=== PATIENT | female | born 1965 | race Caucasian/White ===

== ENCOUNTER 2021-03-11 01:05 | Emergency (ER) | payer OTHER ==
[~2021-03-11] VITALS: Ht 170.2 cm; Wt 66.3 kg
[2021-03-11 01:25] VITALS: BP 155/87
--- NOTE | 2021-03-11 01:48 | ED.ADGEN ---
General Adult EDM: Chief Complaint: MECHANICAL FALL HPI: HPI: Patient is a 56 year old female coming in for right knee pain and swelling after a fall at work. Patient was carrying some buckets when she fell forward striking her right knee onto the concrete. Her left knee fell into a box of syringes and is not hurting. If it ambulate for about 5 minutes until the swelling got too bad at the pain. No other injuries denies any anticoagulant use. States she otherwise been well Review of Systems: Review of Systems: All other systems within normal limits except for as noted in the HPI Allergies: Allergies: Allergies Coded Allergies Type Severity Reaction Last Updated Verified No Known Drug Allergies 03/11/21 No Physical Exam: PE: Constitutional: Well developed, well nourished, no acute distress, non-toxic appearance. [] HENT: Normocephalic, atraumatic, bilateral external ears normal, nose normal. [] Eyes: PERRLA, conjunctiva normal, no discharge. [] Neck: No rigidity, supple, no stridor. [] Cardiovascular: Regular rate and rhythm, brisk cap refill [] Lungs & Thorax: Non labored symmetric respirations, no tachypnea or respiratory distress [] Abdomen: Soft, nondistended. Skin: Warm, dry, no erythema, no rash. [] Back: Unremarkable Extremities: No deformities, range of motion grossly intact, no lower extremity edema. Right knee effusion with patellar tenderness [] Neurologic: Alert and oriented X 3, no focal deficits noted. [] Psychologic: Affect normal, judgement normal, mood normal. [] Current Patient Data: Vital Signs: Vital Signs Date Time Temp Pulse Resp B/P (MAP) Pulse Ox O2 Delivery O2 Flow Rate FiO2 03/11/21 01:25 104 18 155/87 (109) 99 Room Air EKG: EKG: [] Heart Score: C/O Chest Pain: No Risk Factors: Risk Factors: DM, Current or recent (<one month) smoker, HTN, HLP, family history of CAD, obesity. Risk Scores: Score 0 - 3: 2.5% MACE over next 6 weeks - Discharge Home Score 4 - 6: 20.3% MACE over next 6 weeks - Admit for Clinical Observation Score 7 - 10: 72.7% MACE over next 6 weeks - Early Invasive Strategies Radiology/Procedures: Radiology/Procedures: [facility] [address] [place] [address] IMAGING REPORT Signed PATIENT: JODY RICE ACCOUNT: [id number] : 1965 LOCATION: ER AGE: 56 SEX: F EXAM STATUS: REG ER ORD. PHYSICIAN: VARGAS CARVAJAL MD REASON: fall, swelling PROCEDURE: KNEE RIGHT 4V EXAM: AP, oblique, lateral and tangential patellar views of the right knee DATE: 03/11/2021 1:50 AM INDICATION: Reason: fall, swelling / Spl. Instructions: / History: . COMPARISON: No Prior FINDINGS/ IMPRESSION: 1. No definite acute fracture or dislocation. 2. Large right knee joint effusion. 3. Evaluation of patellar positioning limited on this lateral view performed in full extension although the patellar tendon is somewhat wavy. If there is clinical concern for quadriceps tendon injury, MRI or ultrasound can be performed. 4. Small tricompartmental osteophytes. Electronically signed by: Danny Camejo MD (03/11/2021 2:13 AM) [facility] DICTATED and SIGNED BY: DANNY CAMEJO MD DATE: 03/11/21 [id number] [] Course & Med Decision Making: Course & Med Decision Making Pertinent Labs and Imaging studies reviewed. (See chart for details) [] Dragon Disclaimer: Dragon Disclaimer: This electronic medical record was generated, in whole or in part, using a voice recognition dictation system. Departure Departure Impression: Primary Impression: Knee contusion Disposition: HOME / SELF CARE / HOMELESS Condition: STABLE Referrals: NO PCP (PCP) Patient Instructions: Knee Wraps (Elastic Bandage) and RICE VARGAS CARVAJAL MD Mar 11, 2021 01:48
--- NOTE | 2021-03-11 02:16 | RAD ---
EXAM: AP, oblique, lateral and tangential patellar views of the right knee DATE: 03/11/2021 1:50 AM INDICATION: Reason: fall, swelling / Spl. Instructions: / History: . COMPARISON: No Prior FINDINGS/ IMPRESSION: 1. No definite acute fracture or dislocation. 2. Large right knee joint effusion. 3. Evaluation of patellar positioning limited on this lateral view performed in full extension altho ugh the patellar tendon is somewhat wavy. If there is clinical concern for quadriceps tendon injury, MRI or ultrasound can be performed. 4. Small tricompartmental osteophytes. Electronically signed by: Danny Camejo MD (03/11/2021 2:13 AM) [facility]
== END 2021-03-11 02:33 | disposition home or self-care (01) ==
LOC: ER 01:05
DX: S80.01XA Contusion of right knee, initial encounter (principal); W18.39XA Other fall on same level, initial encounter; Y93.89 Activity, other specified; Y92.89 Other specified places as the place of occurrence of the external cause; Y99.8 Other external cause status
CPT/HCPCS: 73564; 99283